=== PATIENT | female | born 1960 | race Caucasian/White ===

== ENCOUNTER 2017-05-19 10:46 | Inpatient (IN) | payer OTHER ==
[~2017-05-19] VITALS: Ht 175.3 cm; Wt 76.7 kg
--- NOTE | ~2017-05-19 | O ---
[facility] [place] [address] OPERATIVE REPORT Name: LALITO FISCHER Room #: 409-P ADM IN M.R.#: [id number] Admission: 05/19/17 Attend Phys: Scott Crockett DO Discharge: Date of : 64 Report #: [id number] THIS REPORT FOR: //name// CC: Scott Crockett DO Alex Fields PREOPERATIVE DIAGNOSES: 1. Cholecystitis with gallbladder sludge, small stones. 2. Dehydration with renal insufficiency, the prerenal azotemia. PROCEDURES PERFORMED: Laparoscopic cholecystectomy. POSTOPERATIVE DIAGNOSES: 1. Cholecystitis with cholesterolosis, sludgy gallbladder. 2. Dehydration with prerenal azotemia. SURGEON: Alex Fields M.D. ANESTHESIA: General anesthesia. COMPLICATIONS: None. ESTIMATED BLOOD LOSS: 5 mL. PROCEDURE NOTE: With the patient under general anesthesia, the abdomen was prepped and draped in sterile fashion. Preoperative IV antibiotic was administered. Timeout was performed. A 0.25% Marcaine was used to dissect the skin and subcutaneous tissue. A 1.5 cm incision was made infraumbilically. Fascia was identified. Fascia was then opened under visualization between clamps. 0 Vicryl suture placed on the fascia. With the abdominal wall lifted anteriorly, Veress needle was then placed through the rest of the wall and peritoneum. Abdominal cavity was insufflated with CO2 without difficulty. Prior to the laparoscopic port placement and prior to the prep, Calvillo catheter was placed because she was so dehydrated. This was placed for accurate I's and O's for accurate urine output measurement. The patient received IV fluids to treat her dehydration. The patient did have adhesions on the left abdomen and also inferior to this trocar site from her previous hysterectomy. The gallbladder area was identified without difficulty. Two 5 mm trocars were placed in the right upper quadrant and a 5 mm trocar placed in right epigastrium. Gallbladder was lifted over the liver. The fundus of the gallbladder was lifted cephalad. There is some adhesion to the liver edge adjacent to where the gallbladder was sitting. The peritoneum over the cystic duct was dissected free. The cystic duct was isolated without difficulty. Junction of cystic duct to the gallbladder visualized. A clip was placed in the junction. An opening was made in the cystic duct. Cholangiogram catheter was inserted. The catheter was difficult to place due to bowels or folds or even [address] [address] OPERATIVE REPORT Name: LYNNE ANDERSONLALITO Room #: 409-P [facility] IN .R.#: [id number] Admission: 05/19/17 Attend Phys: Scott Crockett DO Discharge: Date of : 64 Report #: [id number] scarring. The catheter was held with a clip. Fluoroscopic cholangiogram was obtained. Common bile duct did fill out well. No filling defect. The cholangiogram catheter was identified in the cystic duct. No harm to the common duct was seen. The catheter was then removed after the cholangiogram and the proximal cystic duct was then clipped x 2 and then divided. The cystic artery was found adjacent to this. This was isolated without difficulty, hemoclipped x 2 proximally and 1 distally. There is a small posterior branch that was also clipped. Gallbladder was free from the liver bed without difficulty. Gallbladder was then retrieved through the infraumbilical port. A 5 mm scope was placed through the epigastric port to facilitate this. The gallbladder was removed without difficulty. The 11 mm trocar was then replaced. No harm to the underlying tissue. Gallbladder was opened off the field. The bile did have sludgy appearance. There was cholesterolosis. Several small cholesterol material also floated in the bile. Liver bed was checked, hemostasis was excellent. CO2 was evacuated. Trocars removed. The fascia defect was at the umbilicus, was closed with [id number] 0 Vicryl x 2. Skin was irrigated. Skin was closed with 5-0 PDS. Mastisol, Steri-Strip, Band-Aids applied. The patient taken to recovery room having tolerated the procedure well. By: [id number] Alex Fields MD /renetta
--- NOTE | ~2017-05-19 | HC ---
[facility] [place] [address] CONSULTATION Name: LALITO FISCHER Room #: 409-P [facility] IN M.R.#: [id number] Admission: 05/19/17 Attend Phys: Scott Crockett DO Discharge: 05/22/17 Date of : 64 Report #: [id number] THIS REPORT FOR: //name// CC: Scott Fields DATE OF SERVICE: 05/20/2017 ATTENDING PHYSICIAN: Dr. Alex Fields. REASON FOR CONSULTATION: Elevated creatinine. HISTORY OF PRESENT ILLNESS: The patient with diabetes and hypertension diagnosed over the last 6 years, but she has had for longer than that not followed medically before that time with apparently moderately at best controlled blood sugars and blood pressures Ten days ago or more, she developed abdominal pain, nausea, vomiting, chest discomfort, was evaluated in the [place] [facility]. No specific diagnosis was made. She continued to have abdominal pain, nausea and vomiting, extreme weakness and dizziness, which worsened and eventually she went to her primary care doctor yesterday, was sent immediately to the surgeon, had surgery and had a cholecystectomy where cholecystitis with sludge was found. At the time of all this yesterday, blood work showed an elevated serum creatinine of 3.8, which is down to 3.5 today; a BUN of 52, which is down to 53 today. At that time, her potassium was 3.4 and sodium was 134. Blood sugars were greater than 200. Transaminases, bilirubin, alkaline phosphatase were okay. Albumin was 4.2, has fallen to 3.2. White count 13,000 yesterday, 11.3 today. The creatinine has fallen from 3.8 to 3.5. She has been given IV fluids and she has begun to make some urine. She is still somewhat weak and dizzy. Her abdominal pain is still there, but it is much better. PAST MEDICAL HISTORY: Diabetes and hypertension as mentioned above, under treatment per Dr. Crockett. She has had previous hysterectomy as she had breast biopsy, but that showed some "precancerous cells" HOME MEDICATIONS: Listed include benazepril and hydrochlorothiazide 20/12.5 one daily, bupropion 300 mg daily, vitamin D 400 units daily, Estrace 1 mg daily, and combination sitagliptin-metformin also known as Janumet 1 b.i.d. REVIEW OF SYSTEMS: GENERAL: She has been feeling poorly. EYES: Her vision is reasonably good. ENT: Hearing okay and swallowing has been all right. No mouth sores or ulcers. She has been dizzy. ENDOCRINE: Positive for the diabetes. RESPIRATORY: She has been a little bit breathless over the last week. [facility] [address] [place] [address] CONSULTATION Name: BATISTA LALITO ANDERSON Room #: 409-P [facility] IN M.R.#: [id number] Admission: 05/19/17 Attend Phys: Scott Crockett DO Discharge: 05/22/17 Date of : 64 Report #: [id number] CARDIAC: She has had some chest pain and discomfort. No heart failure, previous heart attack or palpitations. GASTROINTESTINAL: She has had copious nausea and vomiting as mentioned. GENITOURINARY: Urine output may be down a little bit. No dysuria. NEUROLOGIC: Possibly little tingling in her feet. PSYCHIATRIC: Denies depression or anxiety. SOCIAL HISTORY: She is an ongoing cigarette smoker, not much in the way of alcohol. 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 FAMILY HISTORY: She is adopted. PHYSICAL EXAMINATION: GENERAL: A reasonably comfortable-appearing patient, a little bit weak and bit dry looking. SKIN: Turgor is slightly poor. SKELETAL: A bit overweight, but not too bad. HEENT: Extraocular movements are full. No scleral icterus. Hearing and vision are intact. Mucous membranes are moist. Tongue and buccal mucosa are benign. NECK: Supple. Neck veins are flat. CHEST: Clear. HEART: Regular. ABDOMEN: Soft, a little bit tender, particularly on the right. EXTREMITIES: Show no peripheral edema. Pulses intact. NEUROLOGIC: Intact. LABORATORY DATA: Hemoglobin again 12.7 down from 15.5. Sodium 134, potassium 3.8, chloride 97, bicarbonate 21, creatinine 3.5, BUN 53. ASSESSMENT AND PLAN: 1. Elevated creatinine. She tells me that she has been evaluated on a somewhat regular basis at her primary care doctor. She has never been told of any kidney problems. I am assuming this is all acute with the acute cholecystitis, the nausea and vomiting, the poor p.o. intake, the diuretics, the angiotensin-converting enzyme and inhibition, and the high blood sugars all contributing to poor renal perfusion. Hopefully, not a renal injury. I will check urinalysis, urine sodium and creatinine, renal sonogram, and increase IV fluids. I will add some alkali to the IV fluids as well. I trust we will see recovery hopefully in relatively short order. 2. Diabetes mellitus. 3. Hypertension. 4. Status post cholecystectomy for cholecystitis. <ELECTRONICALLY SIGNED> By: Omi Espitia MD 05/24/17 1141 1512 1818 Omi Espitia MD /nt
--- NOTE | ~2017-05-19 | S ---
[facility] [place] [address] SURGICAL PATH RPT PROCEDURE Name: LALITO FISCHER Room #: 409-P [facility] IN M.R.#: [id number] Admission: 05/19/17 Date of : 64 Discharge: 05/22/17 Report #: [id number] Path Case #: [id number] PATHOLOGY REPORT COLLECTION DATE: 05/19/2017 RECEIVED DATE: 05/22/2017 SUBMITTING PHYS: Dr. Alex Fields OTHER PHYS: Dr. Scott Crockett SPECIMEN(S) RECEIVED: A.Gallbladder * * * * * * * * * * * * FINAL DIAGNOSIS: "Gallbladder", cholecystectomy: - Chronic cholecystitis with cholesterol polyps; no dysplasia seen. - Adenomyoma. (CLW:db; 05/23/2017) PATHOLOGIST: Raquel Monroy M.D. REPORT ELECTRONICALLY SIGNED BY: Raquel Monroy M.D. DATE/TIME: 05/23/2017 17:51 * * * * * * * * * * * * GROSS PATHOLOGY: Received in formalin labeled "Lalito Fischer, gallbladder," is a 5.9 x 3.4 x 1.3 cm, previously opened gallbladder with green and smooth serosal surfaces. The previously opened gallbladder reveals a green and velvety mucosa with multiple possible polyps measuring up to 0.4 cm and an average wall thickness of 0.2 cm. Calculi are not present. [employer] sections from the body and fundus are submitted along with the proximal margin in cassette A1. Additional inspection of the container and is contents reveal no calculi. (SDY; 05/22/2017) CLINICAL HISTORY: Cholecystitis with cholelithiasis INITIAL CPT CODE(S): A; 40381 Professional services performed by [facility] at [facility] [address], [place] [address] Technical services performed by [facility] at [address] [place] [address] [address] [place] [address] SURGICAL PATH RPT PROCEDURE Name: LALITO FISCHER Room #: 409-P [facility]#: [id number] Admission: 05/19/17 Date of : 64 Discharge: 05/22/17 Report #: [id number] Path Case #: [id number] [place] [address]. [facility] [address] [place] [address] PHONE: [phone] DIRECTOR: Andrea Christianson M.D. * * * END OF REPORT * * *
[~2017-05-19 10:46] MED LIST: BENAZEPRIL-HCT1 EAC2 PO; BUDEPRION XL300 MG PO; ESTRACE1 MG PO; JANUMET 50-1,01 EACH PO; VITAMIN D400 UNI1 PO
[2017-05-19 15:00] VITALS: BP 104/55
[2017-05-19 15:41] LABS: HEMATOCRIT 44.8 % (37.0-47.0); HEMOGLOBIN 15.5 gm/dL (12.0-15.0); MCH 31.6 pg (26.0-34.0); MCHC 34.6 g/dL (28.0-37.0); MCV 91.3 fL (80.0-100.0); RBC 4.91 mil/uL (4.20-5.00); RDW 12.9 % (10.5-14.5)
[2017-05-19 15:49] LABS: CALCIUM 10.3 mg/dL (8.5-10.1); CREATININE 3.8 mg/dL (0.6-1.0); POTASSIUM 3.4 mmol/L (3.5-5.1)
[2017-05-19 15:55] LABS: ALBUMIN 4.2 g/dL (3.4-5.0); TOTAL BILIRUBIN 0.5 mg/dL (<0.1-1.0); TOTAL PROTEIN 7.9 g/dL (6.4-8.2)
[2017-05-19 20:25] VITALS: BP 108/54
[2017-05-20 00:11] VITALS: BP 99/52
[2017-05-20 04:57] VITALS: BP 94/49
[2017-05-20 06:43] LABS: HEMATOCRIT 36.3 % (37.0-47.0); MCHC 34.9 g/dL (28.0-37.0); MCV 91.8 fL (80.0-100.0); RBC 3.96 mil/uL (4.20-5.00); RDW 12.9 % (10.5-14.5); WBC 11.3 thou/uL (4.0-11.0)
[2017-05-20 06:46] LABS: HEMOGLOBIN 12.7 gm/dL (12.0-15.0)
[2017-05-20 06:59] LABS: CALCIUM 8.9 mg/dL (8.5-10.1); CREATININE 3.5 mg/dL (0.6-1.0); POTASSIUM 3.8 mmol/L (3.5-5.1)
[2017-05-20 07:05] LABS: ALBUMIN 3.2 g/dL (3.4-5.0); DIRECT BILIRUBIN < 0.1 mg/dL (<0.1-0.3); LIPASE 306 U/L (73-393); SGOT 37 U/L (15-37); SGPT 55 U/L (30-65); TOTAL BILIRUBIN 0.3 mg/dL (<0.1-1.0); TOTAL PROTEIN 6.4 g/dL (6.4-8.2)
[2017-05-20 09:22] VITALS: BP 114/57
[2017-05-20 16:00] VITALS: BP 96/43
[2017-05-20 16:58] LABS: URINE BILIRUBIN NEGATIVE (Negative); URINE BLOOD 1+ (Negative); URINE CLARITY CLEAR; URINE COLOR YELLOW; URINE GLUCOSE-RANDOM* TRACE (Negative); URINE KETONES NEGATIVE (Negative); URINE LEUKOCYTES-REFLEX NEGATIVE (Negative); URINE NITRITE-REFLEX NEGATIVE (Negative); URINE PROTEIN (DIPSTICK) NEGATIVE (Negative); URINE UROBILINOGEN 0.2 E.U./dl (0.2-1.0)
[2017-05-20 17:09] LABS: BACTERIA-REFLEX 1-9 Few /HPF (None Seen); CASTS None Seen /LPF (None Seen); SQUAMOUS None Seen /LPF (0-3); URIC ACID CRYSTALS 4-10 Moderate /LPF (None Seen); URINE RBC 0-2 Rare /HPF (0-2); URINE WBC-REFLEX 0-5 Rare /HPF (0-5)
[2017-05-20 19:52] VITALS: BP 98/55
[2017-05-21 05:01] VITALS: BP 123/70
[2017-05-21 06:01] LABS: HEMATOCRIT 32.3 % (37.0-47.0); HEMOGLOBIN 11.3 gm/dL (12.0-15.0); MCH 32.1 pg (26.0-34.0); MCHC 34.9 g/dL (28.0-37.0); RBC 3.51 mil/uL (4.20-5.00); WBC 10.6 thou/uL (4.0-11.0)
[2017-05-21 06:20] LABS: CALCIUM 8.2 mg/dL (8.5-10.1); PHOSPHORUS 3.6 mg/dL (2.5-4.9)
[2017-05-21 06:29] LABS: CREATININE 1.7 mg/dL (0.6-1.0); POTASSIUM 2.9 mmol/L (3.5-5.1)
[2017-05-21 08:30] VITALS: BP 126/74
[2017-05-21 17:15] VITALS: BP 126/64
[2017-05-21 20:12] VITALS: BP 119/74
[2017-05-22 04:00] VITALS: BP 109/71
[2017-05-22 06:20] LABS: ALBUMIN 2.6 g/dL (3.4-5.0); CALCIUM 7.8 mg/dL (8.5-10.1); PHOSPHORUS 2.1 mg/dL (2.5-4.9); POTASSIUM 3.7 mmol/L (3.5-5.1)
[2017-05-22 08:41] VITALS: BP 137/89
[2017-05-22] MEDS ORDERED: ZOFRAN 4 MG ORAL4 MG DISSOLVE (12:10)
[2017-05-22] MEDS ORDERED: NORCO 5-325 TA1 EACH PO (12:11)
[2017-05-22 14:11] VITALS: BP 137/89
== END 2017-05-22 14:32 | disposition home or self-care (01) | DRG 417 ==
LOC: ULTRA 10:46 → 4N 14:44 → ENTRNSPT 05-22 14:21 → EDTRNSPTSTS 05-22 14:25 → 4N 05-22 14:32
PROVIDERS: Internal Medicine Nephrology; Surgery
PROC: 0FT44ZZ Resection of Gallbladder, Percutaneous Endoscopic Approach (ICD-10-PCS; principal; 2017-05-21)
DX: K81.9 Cholecystitis, unspecified (principal); N17.0 Acute kidney failure with tubular necrosis; E87.6 Hypokalemia; I10 Essential (primary) hypertension; F17.210 Nicotine dependence, cigarettes, uncomplicated; K82.9 Disease of gallbladder, unspecified; E86.0 Dehydration; E11.40 Type 2 diabetes mellitus with diabetic neuropathy, unspecified; Z90.710 Acquired absence of both cervix and uterus; Z79.899 Other long term (current) drug therapy; Z90.49 Acquired absence of other specified parts of digestive tract
CPT/HCPCS: 10790; 50010; 50101; 50411; 50555; 50558; 51489; 53307; 53310; 55245; 55317; 56462; 56525; 56526; 62110; 62900; 70005

== ENCOUNTER 2019-06-13 09:51 | Emergency (ER) | payer OTHER ==
[~2019-06-13] VITALS: Ht 175.3 cm; Wt 69.0 kg
[~2019-06-13 09:51] MED LIST changes: +NORCO 5-325 TA1 EACH PO; +ZOFRAN 4 MG ORAL4 MG DISSOLVE
[2019-06-13 10:26] LABS: BASOPHILS 0.6 % (0.0-2.0); EOSINOPHILS 0.7 % (0.0-3.0); HEMATOCRIT 46.7 % (37.0-47.0); HEMOGLOBIN 16.1 gm/dL (12.0-15.0); LYMPHOCYTES 14.4 % (24.0-44.0); MCH 33.1 pg (26.0-34.0); MCHC 34.4 g/dL (28.0-37.0); MCV 96.3 fL (80.0-100.0); MONOCYTES 4.2 % (1.0-8.0); PLATELET COUNT 328 thou/uL (150-400); POLYS 80.1 % (36.0-66.0); RBC 4.85 mil/uL (4.20-5.00); RDW 13.4 % (10.5-14.5); WBC 13.7 thou/uL (4.0-11.0)
[2019-06-13 10:33] LABS: ANION GAP 14 mmol/L (7-16); BUN 24 mg/dL (7-18); CALCIUM 10.4 mg/dL (8.5-10.1); CHLORIDE 94 mmol/L (98-107); CO2 26 mmol/L (21-32); CREATININE 1.3 mg/dL (0.6-1.0); GLUCOSE 186 mg/dL (74-106); POTASSIUM 3.1 mmol/L (3.5-5.1); SODIUM 134 mmol/L (136-145)
[2019-06-13] MEDS ORDERED: METFORMIN HCL1000 MG PO (10:40)
[2019-06-13] MEDS ORDERED: SIMVASTATIN40 MG PO (10:40)
[2019-06-13] MEDS ORDERED: ESTRADIOL 1 MG T1 M1 PO (10:40)
[2019-06-13] MEDS ORDERED: DULOXETINE HCL60 MG PO (10:40)
[2019-06-13] MEDS ORDERED: BENAZEPRIL-HCT1 EA10 PO (10:40)
[2019-06-13] MEDS ORDERED: TRULICITY0.75 MG/0. SUBQ (10:41)
[2019-06-13] MEDS ORDERED: LORAZEPAM 0.50.5 MG PO (10:41)
[2019-06-13 10:42] LABS: TROPONIN-I <0.06 ng/mL (<0.06)
[2019-06-13 10:53] LABS: ALBUMIN 4.7 g/dL (3.4-5.0); DIRECT BILIRUBIN 0.5 mg/dL (<0.1-0.2); TOTAL BILIRUBIN 0.6 mg/dL (<0.1-1.0); TOTAL PROTEIN 8.8 g/dL (6.4-8.2)
[2019-06-13 12:49] LABS: URINE BILIRUBIN NEGATIVE (Negative); URINE BLOOD 1+ (Negative); URINE CLARITY CLEAR; URINE COLOR YELLOW; URINE GLUCOSE-RANDOM* NEGATIVE (Negative); URINE KETONES NEGATIVE (Negative); URINE LEUKOCYTES-REFLEX NEGATIVE (Negative); URINE NITRITE-REFLEX NEGATIVE (Negative); URINE PROTEIN (DIPSTICK) NEGATIVE (Negative); URINE UROBILINOGEN 0.2 E.U./dl (0.2-1.0)
[2019-06-13 13:04] LABS: CALCIUM 9.9 mg/dL (8.5-10.1); CREATININE 1.1 mg/dL (0.6-1.0); POTASSIUM 3.1 mmol/L (3.5-5.1)
--- NOTE | 2019-06-13 13:30 | EKG ---
[facility] [place] [address] ELECTROCARDIOGRAM REPORT Name: LALITO FISCHER Room #: [facility]#: [id number] Admission: 06/13/19 Attend Phys: Discharge: Date of : 64 Report #: [id number] THIS REPORT FOR: cc: Scott Crockett James A. DO Lundgren, Craig H. 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
[2019-06-13] MEDS ORDERED: ZOFRAN ODT4 MG PO (13:52)
[2019-06-13] MEDS ORDERED: BENTYL 20 MG TA20 M1 PO (13:52)
[2019-06-13 13:55] LABS: SQUAMOUS 4-10 Moderate /LPF (0-3)
[2019-06-13 13:56] LABS: CRYSTALS None Seen /LPF (None Seen); HYALINE CASTS 0-3 Few /LPF (None Seen)
[2019-06-13 13:57] LABS: URINE RBC None Seen /HPF (0-2); URINE WBC-REFLEX 0-5 Rare /HPF (0-5)
[2019-06-13 13:58] LABS: BACTERIA-REFLEX 1-9 Few /HPF (None Seen)
[2019-06-13 14:12] VITALS: BP 129/80
== END 2019-06-13 14:20 | disposition home or self-care (01) ==
LOC: ER 09:51
PROVIDERS: Emergency Medicine
DX: K52.9 Noninfective gastroenteritis and colitis, unspecified (principal); E86.0 Dehydration; I10 Essential (primary) hypertension; E11.9 Type 2 diabetes mellitus without complications; F17.210 Nicotine dependence, cigarettes, uncomplicated; Z79.899 Other long term (current) drug therapy; Z88.1 Allergy status to other antibiotic agents; Z88.4 Allergy status to anesthetic agent